=== PATIENT | male | born 1980 | race Caucasian/White ===

== ENCOUNTER → 2020-06-23 | Emergency (ER) | payer OTHER ==
[~2020-06-23] VITALS: Ht 175.3 cm; Wt 83.5 kg
== END | disposition home or self-care (01) ==
LOC: ER 10:24
DX: H10.11 Acute atopic conjunctivitis, right eye (principal); Z11.52 Encounter for screening for COVID-19

== ENCOUNTER 2022-03-25 11:37 | Emergency (ER) | payer OTHER ==
[~2022-03-25] VITALS: Ht 152.4 cm; Wt 79.4 kg
[2022-03-25] MEDS ORDERED: ZITHROMAX500 MG PO (14:49)
[2022-03-25] MEDS ORDERED: MEDROLPACK PO (14:49)
[2022-03-25] MEDS ORDERED: TUSSI-PRES LIQ474 ML PO (14:55)
== END 2022-03-25 15:05 | disposition home or self-care (01) ==
LOC: ER 11:37
DX: J45.909 Unspecified asthma, uncomplicated (principal); Z88.8 Allergy status to other drugs, medicaments and biological substances; Z88.6 Allergy status to analgesic agent; Z20.822 Contact with and (suspected) exposure to COVID-19

== ENCOUNTER 2022-05-09 10:40 | Outpatient (CLI) | payer OTHER ==
[~2022-05-09 10:40] MED LIST: MEDROLPACK PO; TUSSI-PRES LIQ474 ML PO; ZITHROMAX500 MG PO
== END 2022-05-09 10:46 | disposition home or self-care (01) ==
LOC: RAD 10:40
PROVIDERS: ATTEND General Practice
DX: R05.9 Cough, unspecified (principal); R06.02 Shortness of breath; R07.9 Chest pain, unspecified

== ENCOUNTER 2022-05-18 18:26 | Emergency (ER) | payer OTHER ==
[~2022-05-18] VITALS: Ht 175.3 cm; Wt 79.4 kg
== END 2022-05-18 23:47 | disposition home or self-care (01) ==
LOC: ER 18:26
DX: R07.89 Other chest pain (principal); Z88.8 Allergy status to other drugs, medicaments and biological substances; Z91.018 Allergy to other foods

== ENCOUNTER 2024-01-15 12:40 | Emergency (ER) | payer OTHER ==
[~2024-01-15] VITALS: Ht 175.3 cm; Wt 77.1 kg
[2024-01-15 12:44] VITALS: BP 115/75; O2SAT 97
[2024-01-15] MEDS ORDERED: BETAMETHASONE V15 GM TOP (17:11)
== END 2024-01-15 17:25 | disposition home or self-care (01) ==
LOC: ER 12:40
DX: L30.1 Dyshidrosis [pompholyx] (principal); R21 Rash and other nonspecific skin eruption; Z88.1 Allergy status to other antibiotic agents; Z91.048 Other nonmedicinal substance allergy status